=== PATIENT | female | born 1960 | race Caucasian/White ===

== ENCOUNTER → 2016-05-04 09:10 | Day surgery (SDC) | payer OTHER ==
[~2016-05-04 09:10] MED LIST: BSS OPTH.SOL* BTL ONE; Buffered Lidocaine 1% SYR 3ML* 3 ML/SYR SYRINGE INTRADERM ONE; Buffered Lidocaine 1% SYR 3ML* 3 ML/SYR SYRINGE ONE; DiMENhydriNATE IV* 50 MG/ML VIAL IV PUSH PRN; Famotidine IV* 10 MG/ML 2 ML (20 mg) IV ONE; Famotidine IV* 10 MG/ML 2 ML (20 mg) ONE; KETAMINE HCL* 50 MG/ML 10 ML VIAL ONE; Ketorolac INJ* 30 MG/ML 1 ML VIAL ONE; Midazolam* 1 MG/ML 2 ML VIAL (2 MG) ONE; Neomycin/Polymy/Dex OPHTH.OIN* 3.5 GM ONE; Ondansetron INJ* 2 MG/ML VIAL ONE; Phenylephrine 2.5% OPTH.SOL* 2 ML BTL ONE; Propofol* 10 MG/ML 20 ML BTL IV PUSH ONE; Scopolamine 1.5 mg* PATCH ONE; Scopolamine 1.5 mg* PATCH TRANSDERM ONE; Tetracaine 0.5% OPTH.SOL 4 ML* 1 DROP BTL ONE; fentaNYL* 50 MCG/ML 2 ML VIAL (100 MCG VIAL) IV PRN
[2016-05-04 12:50] VITALS: BP 122/77
--- NOTE | 2016-05-04 15:39 | OP ---
DATE OF OPERATION: 05/04/16 [facility] DATE OF : 64 SURGEON: Quincy Falk MD COAL HANDLING SUPERVISOR: None. ANESTHESIOLOGIST: Kwame Damon MD ANESTHESIA: General. 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 OPERATIVE PROCEDURE: Recess each medial rectus muscle, 3.0 mm. COMPLICATIONS: None. BLOOD LOSS: Minimal. DESCRIPTION OF PROCEDURE: The patient was brought to the operating room and received general anesthesia without any complications. A drop of tetracaine and a drop of phenylephrine were placed in each eye. The patient was prepped and draped in the usual sterile fashion for ophthalmic surgery and attention was directed to the right eye where a speculum was placed. Forced ductions were performed and appeared normal. The eye was grasped near the limbus of the inferomedial aspect of the eye and the eye was brought superotemporally. An inferomedial fornix incision was created with a Jennifer scissor and the Tenon' s capsule was violated. The medial rectus muscle was isolated on the Matt muscle hook. The conjunctiva was reflected over the surface of the muscle and the check ligament was opened. The muscle was cleaned with blunt and sharp dissection. A double-armed 6-0 Vicryl suture was woven to the muscle near to insertion and locked at either end. The muscle was disinserted from the globe. The original muscle insertion site was grasped with interrupted locking forceps. The muscle and suture complex were inspected and found to be intact. A wilber was made on the sclera 3.0 mm posterior to the original insertion. The muscle was recessed to this point and tied securely. Sutures were trimmed. Potential cauterization at the original insertion site was performed to achieve hemostasis. The locking forceps were removed. The conjunctiva was closed with 6-0 gut sutures. The speculum was removed and placed in the left eye. Here, the exact same procedure was performed. At the end of the case, the eyes appeared straight and there was no active bleeding. A drop of tetracaine and Maxitrol ointment were placed on to the eye. The patient was awakened uneventfully and sent to the recovery room in stable condition with postoperative instructions and followup appointment given. [id number]/[facility] #: [id number] [facility]
== END | disposition home or self-care (01) ==
LOC: OREAST 09:10
PROVIDERS: ATTEND Ophthalmology
DX: H50.00 Unspecified esotropia (principal); E11.8 Type 2 diabetes mellitus with unspecified complications; Z79.4 Long term (current) use of insulin; Z87.891 Personal history of nicotine dependence; J45.909 Unspecified asthma, uncomplicated; Z86.711 Personal history of pulmonary embolism; Z79.01 Long term (current) use of anticoagulants; Z86.718 Personal history of other venous thrombosis and embolism
CPT/HCPCS: A9270-GY; J1885; J2250; J2405; J2704

== ENCOUNTER 2017-06-21 16:37 | Emergency (ER) | payer OTHER ==
--- OUTSIDE RECORDS SUMMARY | 2017-06-21 16:59 | XMS REPORT ---
:1960 External Reference #:[id number] Author Organization [employer] Address [address] [address] Phone [phone] Care Team Providers Name Role Phone Rebecca Bird MD Care Team Information Director Of Veterans Affairs Unavailable Rebecca Bird MD Primary Care Physician Unavailable Payers Type Date Identification Numbers Payment Provider Subscriber Commercial Policy Number: [id number] [employer] Gabriela Aguirre PayID: [id number] [address] [address] [place] [address] Problems Description No Information Family History Date Family Member(s) Problem(s) Comments General Asthma General Cancer General Diabetes, Insulin Dependent General Thyroid Disease Social History Type Date Description Comments Occupation Disabled Cigarette Use Current Cigarette Smoker 1 Pack Daily Cigars Never Smoked Cigars Pipe Never Smoked A Pipe Smokeless Tobacco Never Used Smokeless Tobacco ETOH Use Rarely consumes alcohol Smoking Patient is a current smoker, smokes every day Allergies, Adverse Reactions, Alerts Date Description Reaction Status Severity Comments 11/04/2009 Penicillin active Medications Medication Date Status Form Strength Qnty SIG Indications Ordering Provider Clotrimazole 12/08 Active Lozenges 10mg 50units 1 po 5 Mohamud times a Cecilio, day for M.D. 10 days Fluticasone 12/08 Active Suspension 50mcg/Act 1month 2 puffs Mohamud each Cecilio, nostril M.D. daily Levothyroxine Active Tablets 150mcg 30tabs 1 po qd Unknown Sodium /0000 Lisinopril Active Tablets 10mg 90tabs 1 po qd Unknown /0000 Hydrochlorothiaz Active Capsules 25mg 90caps 1 po qd Unknown elan Enablex Active Tablets ER 15mg qd 24HR Ceftin Active Tablets 500mg 14tabs po bid Medrol Dosepak 12/22 Hx Tablets 4mg 1pack take as Mohamud Rowan Smalls M.D. 05/11 Lexapro Hx Tablets 10mg samplesgi 1 po qd - 08/11 Omeprazole Hx Capsules 10mg 30caps qd Unknown / - 11/04 Flonase Hx Suspension 50mcg/Act 1monthsu 1 intranas - al puff 11/04 to nostril daily Kapidex Hx Capsules 60mg 1 po qd Unknown / - 11/04 Vesicare Hx Tablets 5mg 30tabs 1 qhs - 08/11 Results Test Date Test Result H/L Range Note CBC Auto Diff 06/16/2017 White Blood Count 8.1 10^3/uL 3.5-10.8 1 Red Blood Count 4.39 10^6/uL 4.0-5.4 1 Hemoglobin 13.7 g/dL 12.0-16.0 1 Hematocrit 41 % 35-47 1 Mean Corpuscular Volume 94 fL 80-97 1 Mean Corpuscular Hemoglobin 31 pg 27-31 1 Mean Corpuscular HGB Conc 33 g/dL 31-36 1 Red Cell Distribution Width 15 % 10.5-15 1 Platelet Count 377 10^3/uL 150-450 1 Mean Platelet Volume 9 um3 7.4-10.4 1 Abs Neutrophils 4.0 10^3/uL 1.5-7.7 1 Abs Lymphocytes 2.5 10^3/uL 1.0-4.8 1 Abs Monocytes 1.2 10^3/uL High 0-0.8 1 Abs Eosinophils 0.3 10^3/uL 0-0.6 1 Abs Basophils 0.1 10^3/uL 0-0.2 1 Abs Nucleated RBC 0 10^3/uL 1 Granulocyte % 50.2 % 38-83 1 Lymphocyte % 30.9 % 25-47 1 Monocyte % 14.5 % High 0-7 1 Eosinophil % 3.7 % 0-6 1 Basophil % 0.7 % 0-2 1 Nucleated Red Blood Cells % 0.1 1 Comp Metabolic Panel 06/16/2017 Sodium 133 mmol/L 133-145 1 Potassium 4.0 mmol/L 3.5-5.0 1 Chloride 100 mmol/L Low 101-111 1 Co2 Carbon Dioxide 25 mmol/L 22-32 1 Anion Gap 8 mmol/L 2-11 1 Glucose 381 mg/dL High 70-100 1 Blood Urea Nitrogen 14 mg/dL 6-24 1 Creatinine 0.89 mg/dL 0.51-0.95 1 BUN/Creatinine Ratio 15.7 8-20 1 Calcium 9.3 mg/dL 8.6-10.3 1 Total Protein 6.9 g/dL 6.4-8.9 1 Albumin 4.0 g/dL 3.2-5.2 1 Globulin 2.9 g/dL 2-4 1 Albumin/Globulin Ratio 1.4 1-3 1 Total Bilirubin 0.30 mg/dL 0.2-1.0 1 Alkaline Phosphatase 156 U/L High 34-104 1 Alt 56 U/L High 7-52 1 Ast 57 U/L High 13-39 1 Egfr Non- 65.8 >60 1 Egfr 84.7 >60 1, 2 1 [id number] 2 Because ethnic data is not always readily available, this report includes an eGFR for both -Americans and non- Americans. The National Kidney Disease Education Program (NKDEP) does not endorse the use of the MDRD equation for patients that are not between the ages of 18 and 70, are , have extremes of body size, muscle mass, or nutritional status, or are non- or non-. According to the National Kidney Foundation, irrespective of diagnosis, the stage of the disease is based on the level of kidney function: Stage Description GFR(mL/min/1.73 m(2)) 1 Kidney damage with normal or decreased GFR 90 2 Kidney damage with mild decrease in GFR 60-89 3 Moderate decrease in GFR 30-59 4 Severe decrease in GFR 15-29 5 Kidney failure <15 (or dialysis) Procedures Date CPT Code Description Status 01/05/2011 34619 Tympanometry Completed 12/08/2010 57900 Fibroptic Laryngoscopy Completed 11/25/2009 27783 Tympanometry Completed 11/25/2009 69248 Myringotomy W/Tube, OS Completed 11/04/2009 08198 Tympanometry Completed Encounters Type Date Location Provider CPT E/M Dx Office Visit 06/16/2017 1:50p [facility] [place] [address] L30.9 [place] Office Visit 06/02/2017 3:50p [facility] [place] [address] L30.9 [place] L94.0 Office Visit 05/11/2011 1:15p [facility] M.D. 45911 381.81 [facility] [place] Office Visit 01/05/2011 1:15p [facility] M.D. 60588 381.81 [facility] [place] Office Visit 12/22/2010 3:30p [facility] M.D. 73826 381.19 [facility] [place] 381.81 784.91 Office Visit 12/08/2010 3:15p [facility] M.D. 91490 784.1 [facility] [place] 381.19 Office Visit 08/11/2010 2:45p [facility] M.D. 42056 381.81 [facility] [place] 784.91 Office Visit 2010 1:30p [facility] M.D. 08915 381.81 [facility] [place] 381.19 Office Visit 11/04/2009 2:15p [facility] M.D. 51830 381.19 [facility] [place] 381.81 Plan of Care Future Appointment(s):07/14/2017 1:20 pm - [place] [facility] MD at [facility] [place]
[2017-06-21 17:31] VITALS: BP 111/83
--- NOTE | 2017-06-21 18:11 | UC ---
UC General HPI - HPI Summary HPI Summary: pt is c/o being ill for a month. she is c/o sinus congestion with yellow and sometimes blood streak drainage, post nasal drip, cough with congestion and a headache. she was seen in the ER 2 weeks ago and dx with the flu. she admits to sob, wheezing, subjective fever and chills. pt has hx copd and asthma. she is a diabetic but hasn't had any acute BS changes with this illness. - History of Current Complaint Hx Obtained From: Patient, Family/Pharmacy Intake Coordinator Onset/Duration: Gradual Onset Timing: Constant Pain Intensity: 6 Associated Signs & Symptoms: Positive: Cough, Fever, SOB, Wheezing. Negative: Chest Pain, Diarrhea, Dysuria, Headache, Nausea, Vomiting <Megan Malloy - Last Filed: 06/21/17 18:38> <Suri Jay - Last Filed: 06/21/17 19:04> - History of Current Complaint Chief Complaint: UCRespiratory Stated Complaint: COUGH,CONGESTION Time Seen by Provider: 06/21/17 18:03 - Allergy/Home Medications Allergies/Adverse Reactions: Allergies Allergy/AdvReac Type Severity Reaction Status Date / Time amoxicillin Allergy Unknown DIFFICULTY Verified 06/21/17 17:15 WALKING FOR A COUPLE DAYS AFTER TAKING doxycycline Allergy Unknown Nausea Verified 06/21/17 17:15 metformin Allergy Unknown MUSCLE Verified 06/21/17 17:15 TIGHTNESS Penicillins Allergy Unknown Hives Verified 06/21/17 17:15 Home Medications: Home Medications Insulin Glargine,Hum.rec.anlog [Basaglar Kwikpen U-100] 30 unit SC BEDTIME 06/21 [History Confirmed 06/21/17] Levothyroxine TAB* [Synthroid 150 MCG TAB*] 150 mcg PO DAILY 06/21/17 [History Confirmed 06/21/17] Sertraline* [Zoloft*] 100 mg PO BEDTIME 06/21/17 [History Confirmed 06/21/17] PMH/Surg Hx/FS Hx/Imm Hx - Additional Past Medical History Additional PMH: CA ovary/uterien, thyroid and pancreatic. Endocrine History: Diabetes, Dyslipidemia Respiratory History: COPD, Asthma, Pulmonary Embolism - Surgical History Surgical History: Yes Surgery Procedure, Year, and Place: 1988 C3,4,5,[address], [facility] [place]. COMPLETE HYSTERECTOMY, [facility]. 1989 THYROIDECTOMY, [facility]. 1999 RIGHT SHOULDER ROTATOR CUFF REPAIR, [facility]. 2011 WHIPPLE PROCEDURE WITH SPLENECTOMY, [facility]. 10/2015 CATARACTS BILATERAL. 2015 INFUSAPORT IN AND REMOVED, [facility]. ULNAR NERVE REMOVAL - Social History Lives: With Family Alcohol Use: None Substance Use Type: None Smoking Status (MU): Former Smoker Type: Cigarettes Amount Used/How Often: 2-3 PPD X 20-25 YEARS Have You Smoked in the Last Year: No When Did the Patient Quit Smoking/Using Tobacco: 03/2012 - Immunization History Vaccination Up to Date: Yes <Megan Malloy - Last Filed: 06/21/17 18:38> Review of Systems Constitutional: Fever, Chills ENT: Nasal Discharge, Sinus Congestion, Sinus Pain/Tenderness Respiratory: Shortness Of Breath, Cough Is Patient Immunocompromised?: No All Other Systems Reviewed And Are Negative: Yes <Megan Malloy - Last Filed: 06/21/17 18:38> Physical Exam Triage Information Reviewed: Yes Appearance: Well-Nourished Vital Signs: Initial Vital Signs Temp 99 F 06/21/17 17:21 Pulse 79 06/21/17 17:21 Resp 24 06/21/17 17:21 BP 111/83 06/21/17 17:21 Pulse Ox 96 06/21/17 17:21 Vital Signs Reviewed: Yes Eye Exam: Normal ENT: Positive: Pharynx normal, Nasal congestion, Nasal drainage - yellow, TMs normal, Sinus tenderness Neck: Positive: Supple, Nontender, No Lymphadenopathy Respiratory: Positive: Lungs clear, Decreased breath sounds, Other: - cough is congested. Negative: Crackles Cardiovascular: Positive: RRR, No Murmur Abdomen Description: Positive: Nontender, No Organomegaly, Soft. Negative: Distended, Guarding Bowel Sounds: Positive: Present Neurological: Positive: Alert Psychological: Positive: Normal Response To Family, Age Appropriate Behavior Skin Exam: Normal <Megan Malloy - Last Filed: 06/21/17 18:38> Vital Signs: Initial Vital Signs Temp 99 F 06/21/17 17:21 Pulse 79 06/21/17 17:21 Resp 24 06/21/17 17:21 BP 111/83 06/21/17 17:21 Pulse Ox 96 06/21/17 17:21 <Suri Jay - Last Filed: 06/21/17 19:04> Course/Dx - Course Course Of Treatment: non toxic, not hypoxic. will tx for sinsuitis and copd flare. has taken augmentin with no reaction. advised of risk for increased BS with prednisone, pt aware already. pt states she is not allergic to augmentin and has taken it more than once with no problems thus will tx with that. - Differential Dx - Multi-Symptom Provider Diagnoses: sinusitis, copd flare <Megan Malloy - Last Filed: 06/21/17 18:38> Discharge <Megan Malloy - Last Filed: 06/21/17 18:38> <Suri Jay - Last Filed: 06/21/17 19:04> - Discharge Plan Condition: Stable Disposition: HOME Prescriptions: Albuterol HFA INHALER* [Ventolin HFA Inhaler*] 2 puff INH Q6H #1 mdi Amoxicillin/Clavulanate TAB* [Augmentin TAB 875*] 875 mg PO BID 10 Days #20 tab predniSONE TAB* [Deltasone TAB*] 40 mg PO DAILY 3 Days #6 tab Patient Education Materials: Sinusitis (ED) Referrals: Gabriela Quintana PA [Primary Care Provider] - 5 Days Attestation Statement User Type: Provider - I was available for consult. This patient was seen by the SANG. The patient was not presented to, seen by, or examined by me. Peyman <Suri Jay - Last Filed: 06/21/17 19:04>
== END 2017-06-21 18:31 | disposition home or self-care (01) ==
LOC: UCCORT 16:37
DX: J32.9 Chronic sinusitis, unspecified (principal); J44.1 Chronic obstructive pulmonary disease with (acute) exacerbation; E11.9 Type 2 diabetes mellitus without complications; Z79.4 Long term (current) use of insulin; E78.5 Hyperlipidemia, unspecified; Z86.711 Personal history of pulmonary embolism; Z85.42 Personal history of malignant neoplasm of other parts of uterus; Z85.43 Personal history of malignant neoplasm of ovary; Z85.850 Personal history of malignant neoplasm of thyroid; Z85.07 Personal history of malignant neoplasm of pancreas; Z88.1 Allergy status to other antibiotic agents; Z88.0 Allergy status to penicillin; Z88.8 Allergy status to other drugs, medicaments and biological substances; Z87.891 Personal history of nicotine dependence
CPT/HCPCS: 99212; G0463